=== PATIENT | male | born 1960 | race African-American/Black ===

== ENCOUNTER 2020-09-20 05:06 | Day surgery (SDC) | payer OTHER ==
[~2020-09-20] VITALS: Ht 185.4 cm; Wt 77.1 kg
[2020-09-20 06:23] VITALS: BP 137/79; Ht 185.4 cm; Wt 77.1 kg
--- NOTE | 2020-09-22 13:08 | HP ---
PATIENT: ABHI MONTANO MEDICAL RECORD: [id number] ACCOUNT: [id number] LOCATION:[facility] : 64 ADMISSION DATE: 09/20/20 PCP: No PCP HISTORY AND PHYSICAL EXAMINATION CHIEF COMPLAINT: Right inguinal hernia. HISTORY OF PRESENT ILLNESS: The patient has a right inguinal hernia, which is becoming increasingly symptomatic. He has had no obstructive symptoms. He first noticed it about 12 months ago. It has been enlarging. The risks, possible complications, and alternatives of the procedure were explained to the patient. He elects to proceed. HOME MEDICINES: Reviewed. ALLERGIES: Reviewed. REVIEW OF SYSTEMS: No nausea, no vomiting, no fever, no chills. PHYSICAL EXAMINATION: GENERAL: The patient does not appear acutely ill. He does not appear chronically ill. VITAL SIGNS: Reviewed. EARS: External ears appear normal. EYES: Extraocular movements are intact. NECK: Trachea is midline. CHEST: No intercostal retractions. PULMONARY: Nonlabored. No stridor. GENITOURINARY: Right inguinal hernia that is self reducing. IMPRESSION: Symptomatic right inguinal hernia. PLAN: Plan will be a right inguinal hernia repair with mesh. TRANSINT:[id number] Voice Confirmation ID: [id number] DOCUMENT ID: [id number] cc: Елена Green NP, unknown YOLANDA SANCHES MD at 1308 CC: [id number] DICTATION DATE: 09/20/20 0850 INTRAOPERATIVE NEURO TECH: 09/21/20 2319 [facility] 09/20/[address] [address]
--- NOTE | 2020-10-25 07:13 | OP ---
PATIENT NAME: ABHI MONTANO MEDICAL RECORD: [id number] :64 [facility] DATE: SURGEON: YOLANDA SANCHES MD DATE OF OPERATION: 09/20/2020 PREOPERATIVE DIAGNOSIS: Symptomatic right inguinal hernia. POSTOPERATIVE DIAGNOSIS: Symptomatic right indirect inguinal hernia. PROCEDURE: Open repair of symptomatic right indirect inguinal hernia with bilayered polypropylene mesh. SURGEON: Yolanda Sanches MD FAMILY SUPPORT WORKER: None. BLOOD LOSS: Minimal. ANESTHESIA: General. COMPLICATIONS: None. The risks, possible complications and alternatives of the procedure were explained to the patient. He elects to proceed. The discussion specifically included, but was not limited to, bleeding requiring emergency reoperation, infection, intestinal injury as well as chronic pain. OPERATIVE COURSE: The patient was conveyed to the operating room electively on 09/20/2020. General anesthesia was induced by the anesthesia staff. The abdomen and genitals were sterilely prepped and draped. A transverse incision was accomplished in the right groin. Sharp dissection was carried down through skin and subcutaneous tissue as well as Rosie's fascia. The external oblique aponeurosis was opened along the direction of its fibers. I bluntly dissected down through the internal oblique and transversus abdominis muscles. A preperitoneal pocket was fashioned bluntly. Indirect hernia was reduced in its entirety. There was no direct component. No femoral component. Once I was satisfied with the preperitoneal dissection, two oval of polypropylene mesh were cut and these were sutured together one on top of the other with a running #1 Surgidac. The mesh was placed in the preperitoneal space. Once I was satisfied with placement of the mesh, I allowed the internal oblique and transversus abdominis muscles to come together. These muscles were sutured together with multiple interrupted horizontal mattress 0 Surgidac. I incorporated a portion of the underlying mesh with these sutures. At no time was there any apparent nerve injury. The external oblique aponeurosis was closed with running #1 Vicryls. Rosie's fascia was approximated with interrupted 3-0 Vicryl. The subdermis was approximated with interrupted 3-0 Vicryl. The skin was approximated with a running intracuticular 3-0 Vicryl. Benzoin and Steri-Strips were applied. The patient was then extubated and conveyed to post-anesthesia care unit where he was in stable condition. He will be dismissed home on analgesic as well as a stool softener. I will see him in the office in 2 to 3 weeks. TRANSINT:[id number] Voice Confirmation ID: [id number] DOCUMENT ID: [id number] OPERATIVE REPORT [id number] ABHI MONTANO, YOLANDA OLSEN at 0713 CC: [id number] DICTATION DATE: 10/23/20 1414 MARKETING REPRESENTATIVE: 10/23/20 1614 [facility] 09/20/[address] [address]
== END 2020-09-20 15:30 | disposition home or self-care (01) ==
LOC: D.OPS 05:06
PROVIDERS: ATTEND Surgery
DX: K40.90 Unilateral inguinal hernia, without obstruction or gangrene, not specified as recurrent (principal)